=== PATIENT | female | born 1970 | race Caucasian/White ===

== ENCOUNTER 2017-01-13 20:20 | Emergency (ER) | payer BC ==
[2017-01-13 20:30] VITALS: BP 129/96
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
== END 2017-01-13 21:25 | disposition home or self-care (01) ==
LOC: CC.ED 20:20
DX: S62.235A Other nondisplaced fracture of base of first metacarpal bone, left hand, initial encounter for closed fracture (principal); S00.83XA Contusion of other part of head, initial encounter; S80.211A Abrasion, right knee, initial encounter; Z88.5 Allergy status to narcotic agent; Z98.890 Other specified postprocedural states; Z98.84 Bariatric surgery status; Z90.49 Acquired absence of other specified parts of digestive tract; Z79.899 Other long term (current) drug therapy; V29.9XXA Motorcycle rider (driver) (passenger) injured in unspecified traffic accident, initial encounter
CPT/HCPCS: 29125; 73130-LT; 99283

== ENCOUNTER 2017-06-18 09:20 | Inpatient (IN) | payer BC ==
--- NOTE | 2017-06-18 09:55 | EDM.PDOC ---
ED HPI GENERAL MEDICAL PROBLEM - General Chief Complaint: General Stated Complaint: N/V/CHEST PRESSURE Time Seen by Provider: 06/18/17 09:45 Source of Information: Reports: Patient History Limitations: Reports: No Limitations - History of Present Illness INITIAL COMMENTS - FREE TEXT/NARRATIVE: Patient is a 47 year old female who presents to the ER with complaints of nausea , vomiting, and chest pressure. She reports that the symptoms started two days ago. On she reports she was nauseated and was unable to eat. She reportedly vomited 4 times yesterday and was vomiting all through the night last night. She has been unable to eat or drink without vomiting. She reports she would have episodes of coughing and shortness of breath where she would cough so hard that she would vomit. She states that she feels the shortness of breath when she is coughing. These episodes have been occurring more frequently , prompting her presentation to the ER. She reports that she has a sensation of chest pressure in the epigastric region. She tried taking NyQuil last night, without relief. She also has taken Zofran and omeprazole without relief. Onset Date: 06/16/17 Duration: Getting Worse Location: Reports: Chest (pressure), Abdomen (nausea & vomiting) Improves with: Reports: None Worsens with: Reports: None Associated Symptoms: Reports: Cough, Fever/Chills (chills), Loss of Appetite, Nausea/Vomiting, Shortness of Breath Treatments RESEARCH SUBJECT: Reports: Other Medication(s) (zofran & NyQuil) - Related Data Allergies Allergy/AdvReac Type Severity Reaction Status Date / Time codeine Allergy Nausea Verified 01/13/17 20:19 Home Meds: Home Meds Biotin 10,000 mcg PO DAILY 01/13/17 [History] Calcium Carbonate/Vitamin D3 [Calcium 500 + Vit D Caplet] 1 tab PO DAILY [History] Cholecalciferol (Vitamin D3) [Vitamin D3] 5,000 unit PO DAILY 01/13/17 [History] Iron 18 mg PO DAILY 01/13/17 [History] Multivitamin [Multivitamins] 2 tab PO DAILY 01/13/17 [History] buPROPion HCl [Bupropion Xl] 300 mg PO DAILY 01/13/17 [History] Vitamin B Complex [B Complex] 1 each PO DAILY 10/14/17 [History] Past Medical History - Past Surgical History HEENT Surgical History: Reports: Adenoidectomy, Tonsillectomy GI Surgical History: Reports: Bariatric Procedure, Cholecystectomy, Other (See Below) Social & Family History - Family History Family Medical History: Noncontributory - Tobacco Use Smoking Status *Q: Never Smoker Second Hand Smoke Exposure: No - Caffeine Use Caffeine Use: Reports: Coffee - Recreational Drug Use Recreational Drug Use: No ED ROS GENERAL - Review of Systems Review Of Systems: See Below Constitutional: Reports: Chills, Fatigue, Decreased Appetite. Denies: Fever, Malaise, Diaphoresis HEENT: Reports: No Symptoms Respiratory: Reports: Shortness of Breath (with coughing), Wheezing, Cough Cardiovascular: Reports: Chest Pain (pressure in epigastric region). Denies: Dyspnea on Exertion, Edema, Lightheadedness, Palpitations Endocrine: Reports: No Symptoms GI/Abdominal: Reports: Anorexia, Diarrhea (baseline), Decreased Appetite, Nausea , Vomiting. Denies: Abdominal Pain, Black Stool, Bloody Stool, Difficulty Swallowing, Distension, Hematemesis, Hematochezia, Melena : Reports: No Symptoms. Denies: Dysuria, Flank Pain, Frequency, Urgency Musculoskeletal: Reports: No Symptoms Skin: Reports: No Symptoms Neurological: Reports: No Symptoms Psychiatric: Reports: No Symptoms Hematologic/Lymphatic: Reports: No Symptoms Immunologic: Reports: No Symptoms ED EXAM, GENERAL - Physical Exam Exam: See Below Exam Limited By: No Limitations General Appearance: Alert, WD/WN, Mild Distress Eye Exam: Bilateral Eye: EOMI, Normal Inspection, PERRL Ears: Normal External Exam, Normal Canal, Hearing Grossly Normal, Normal TMs Ear Exam: Bilateral Ear: Auricle Normal, Canal Normal, TM normal Nose: Normal Inspection, Normal Mucosa, No Blood Throat/Mouth: Normal Inspection, Normal Lips, Normal Teeth, Normal Gums, Normal Oropharynx, Normal Voice, No Airway Compromise Head: Atraumatic, Normocephalic Neck: Normal Inspection, Supple, Non-Tender, Full Range of Motion Respiratory/Chest: No Respiratory Distress, Lungs Clear, Normal Breath Sounds, No Accessory Muscle Use, Chest Non-Tender Cardiovascular: Normal Peripheral Pulses, Regular Rate, Rhythm, No Edema, No Gallop, No JVD, No Murmur, No Rub Peripheral Pulses: 2+: Dorsalis Pedis (L), Dorsalis Pedis (R) GI/Abdominal: Normal Bowel Sounds, Soft, Non-Tender, No Organomegaly, No Distention, No Mass, Pelvis Stable (Female) Exam: Deferred Rectal (Female) Exam: Deferred Back Exam: Normal Inspection, Full Range of Motion, NT Extremities: Normal Inspection, Normal Range of Motion, Non-Tender, Normal Capillary Refill, No Pedal Edema Neurological: Alert, Oriented, CN II-XII Intact, Normal Cognition, Normal Gait, Normal Reflexes, No Motor/Sensory Deficits Psychiatric: Normal Affect, Normal Mood Skin Exam: Warm, Dry, Intact, Normal Color, No Rash Lymphatic: No Adenopathy Course - Vital Signs Last Recorded V/S: Last Vital Signs Temp 98.8 F 06/18/17 14:51 Pulse 83 06/18/17 14:51 Resp 18 06/18/17 14:51 BP 115/55 L 06/18/17 14:51 Pulse Ox 99 06/18/17 14:51 - Orders/Labs/Meds Orders: Active Orders 24 hr Category Date Time Status Abdomen Pelvis w Cont [CT] Stat Exams 06/18/17 11:21 Taken Chest 2V [CR] Stat Exams 06/18/17 09:29 Taken Sodium Chloride 0.9% [Normal Saline] 1,000 ml Med 06/18/17 13:30 Active IV ASDIRECTED Medication Orders Albuterol/Ipratropium (Duoneb 3.0-0.5 Mg/3 Ml) 3 ml NEB STAT ONE Stop: 06/18/17 15:13 Sodium Chloride (Normal Saline) 1,000 mls @ 125 mls/hr IV ASDIRECTED [place] Last Admin: 06/18/17 13:35 Dose: 125 mls/hr Labs: Laboratory Tests 06/18/17 06/18/17 06/18/17 Range/Units 09:40 09:40 09:40 WBC 17.5 H (5.0-10.0) 10^3/uL RBC 4.77 (4.00-5.50) 10^6/uL Hgb 13.3 (12.0-16.0) g/dL Hct 40.9 (37.0-47.0) % MCV 85.7 (82.0-94.0) fL MCH 27.9 (27.0-32.0) pg MCHC 32.5 L (33.0-38.0) g/dL RDW Coeff of [place] 14.3 (11.0-15.0) % Plt Count 286 (150-400) 10^3/uL Add Manual Diff Yes Neutrophils % (Manual) 70 (35-85) % Band Neutrophils % 21 H (0-5) % Lymphocytes % (Manual) 4 L (21-55) % Monocytes % (Manual) 5 (2-12) % Absolute Neutrophils 15.93 H (1.80-7.00) 10^3/uL Lymphocytes # (Manual) 0.70 L (1.00-4.80) 10^3/uL Monocytes # (Manual) 0.88 H (0.00-0.80) 10^3/uL PT 10.9 (9.7-12.3) SEC INR 1.01 (0.92-1.18) APTT 26.9 (20.0-45.0) SEC D-Dimer, Quantitative (0.00-0.50) Sodium 139 (136-145) mEq/L Potassium 3.9 (3.5-5.0) mEq/L Chloride 104 (98-106) mEq/L Carbon Dioxide 26 (21-32) mmol/L BUN 11 D (7-18) mg/dL Creatinine 0.7 (0.6-1.0) mg/dL Est Cr Clr Drug Dosing 101.60 mL/min Estimated GFR (MDRD) > 60 (>=60) mL/min Glucose 104 H (75-99) mg/dL Calcium 9.1 (8.4-10.1) mg/dL Lactate Dehydrogenase 140 (100-190) U/L Creatine Kinase 42 (21-215) U/L Troponin I < 0.017 (0.00-0.06) ng/mL NT-Pro-B Natriuret Pep 39 (0-1000) pg/mL Urine Color (YELLOW) Urine Appearance (CLEAR) Urine pH (4.5-8.0) Ur Specific [place] (1.003-1.020) Urine Protein (NEGATIVE) mg/dL Urine Glucose (UA) (NEGATIVE) mg/dL Urine Ketones (NEGATIVE) mg/dL Urine Occult Blood (NEGATIVE) Urine Nitrite (NEGATIVE) Urine Bilirubin (NEGATIVE) Urine Urobilinogen (0.2-1.0) EU/dL Ur Leukocyte Esterase (NEGATIVE) Urine RBC (0-5) /HPF Urine WBC (0-5) /HPF Ur Epithelial Cells (NOT SEEN) /HPF Amorphous Sediment (NOT SEEN) /HPF Urine Mucus (NOT SEEN) /HPF 06/18/17 06/18/17 Range/Units 09:40 10:15 WBC (5.0-10.0) 10^3/uL RBC (4.00-5.50) 10^6/uL Hgb (12.0-16.0) g/dL Hct (37.0-47.0) % MCV (82.0-94.0) fL MCH (27.0-32.0) pg MCHC (33.0-38.0) g/dL RDW Coeff of Tracy (11.0-15.0) % Plt Count (150-400) 10^3/uL Add Manual Diff Neutrophils % (Manual) (35-85) % Band Neutrophils % (0-5) % Lymphocytes % (Manual) (21-55) % Monocytes % (Manual) (2-12) % Absolute Neutrophils (1.80-7.00) 10^3/uL Lymphocytes # (Manual) (1.00-4.80) 10^3/uL Monocytes # (Manual) (0.00-0.80) 10^3/uL PT (9.7-12.3) SEC INR (0.92-1.18) APTT (20.0-45.0) SEC D-Dimer, Quantitative 0.20 (0.00-0.50) Sodium (136-145) mEq/L Potassium (3.5-5.0) mEq/L Chloride (98-106) mEq/L Carbon Dioxide (21-32) mmol/L BUN (7-18) mg/dL Creatinine (0.6-1.0) mg/dL Est Cr Clr Drug Dosing mL/min Estimated GFR (MDRD) (>=60) mL/min Glucose (75-99) mg/dL Calcium (8.4-10.1) mg/dL Lactate Dehydrogenase (100-190) U/L Creatine Kinase (21-215) U/L Troponin I (0.00-0.06) ng/mL NT-Pro-B Natriuret Pep (0-1000) pg/mL Urine Color Dark yellow (YELLOW) Urine Appearance Clear (CLEAR) Urine pH 7.0 (4.5-8.0) Ur Specific [place] 1.025 H (1.003-1.020) Urine Protein 30 H (NEGATIVE) mg/dL Urine Glucose (UA) Negative (NEGATIVE) mg/dL Urine Ketones 80 H (NEGATIVE) mg/dL Urine Occult Blood Negative (NEGATIVE) Urine Nitrite Negative (NEGATIVE) Urine Bilirubin Negative (NEGATIVE) Urine Urobilinogen 1.0 (0.2-1.0) EU/dL Ur Leukocyte Esterase Negative (NEGATIVE) Urine RBC Not seen (0-5) /HPF Urine WBC 0-5 (0-5) /HPF Ur Epithelial Cells Moderate H (NOT SEEN) /HPF Amorphous Sediment Few H (NOT SEEN) /HPF Urine Mucus Moderate H (NOT SEEN) /HPF Meds: Medications Generic Name Dose Route Start Last Admin Trade Name Freq PRN Reason Stop Dose Admin Albuterol/Ipratropium 3 ml 06/18/17 15:12 Duoneb 3.0-0.5 Mg/3 Ml NEB 06/18/17 15:13 STAT ONE Sodium Chloride 1,000 mls @ 125 mls/hr 06/18/17 13:30 06/18/17 13:35 Normal Saline IV 125 mls/hr ASDIRECTED [place] Administration Discontinued Medications Generic Name Dose Route Start Last Admin Trade Name Freq PRN Reason Stop Dose Admin Al Hydroxide/Mg Hydroxide 30 0 ml 06/18/17 14:18 06/18/17 14:56 ml/ Lidocaine HCl 15 ml PO 06/18/17 14:19 45 ml ONETIME ONE Administration Sodium Chloride 1,000 mls @ 999 mls/hr 06/18/17 10:00 06/18/17 10:32 Normal Saline IV 06/18/17 11:00 999 mls/hr .BOLUS ONE Administration Promethazine HCl 25 mg/ Sodium 51 mls @ 100 mls/hr 06/18/17 13:20 06/18/17 13 :37 Chloride IV 06/18/17 13:50 100 mls/hr NOW STA Administration Iopamidol 100 ml 06/18/17 11:32 06/18/17 11:58 Isovue-300 (61%) IVPUSH 06/18/17 11:33 100 ml ONETIME ONE Administration Ondansetron HCl 4 mg 06/18/17 10:00 06/18/17 10:36 Zofran IVPUSH 06/18/17 10:01 4 mg NOW STA Administration Pantoprazole Sodium 40 mg 06/18/17 13:20 06/18/17 13:35 Protonix Iv IVPUSH 06/18/17 13:21 40 mg ONETIME ONE Administration - Re-Assessments/Exams Free Text/Narrative Re-Assessment/Exam: 06/18/17 11:27 Discussed lab results with patient. Will get a CT of abdomen/pelvis given WBC of 17.5. Departure - Departure Time of Disposition: 14:40 Disposition: Admitted As Inpatient 64 Condition: Fair Clinical Impression: Pneumonia Qualifiers: Pneumonia type: due to unspecified organism Laterality: right Lung location: lower lobe of lung Qualified Code(s): J18.1 - Lobar pneumonia, unspecified organism Leukocytosis Qualifiers: Leukocytosis type: bandemia Qualified Code(s): D72.825 - Bandemia Nausea & vomiting Qualifiers: Vomiting type: unspecified Vomiting Intractability: non-intractable Qualified Code(s): R11.2 - Nausea with vomiting, unspecified - Discharge Information - My Orders Last 24 Hours: My Active Orders 06/18/17 11:21 Abdomen Pelvis w Cont [CT] Stat - Assessment/Plan Last 24 Hours: My Active Orders 06/18/17 11:21 Abdomen Pelvis w Cont [CT] Stat Assessment:: Right Lower Lobe Pneumonia Leukocytosis Nausea & Vomiting Plan: SEE RN NOTE FOR PFSH. See use ER [facility] as admission [facility] & [facility]. Admit to Acute.
[2017-06-18] MEDS ORDERED: Ondansetron 4 MG/2 ML SDV IVPUSH STA (10:00)
[2017-06-18] MEDS ORDERED: Sodium Chloride 0.9% 1,000 ML IV ONE (10:00)
[2017-06-18 10:11] LABS: CHLORIDE,CL 104 mEq/L (98-106); SODIUM,NA 139 mEq/L (136-145)
[2017-06-18] MEDS ORDERED: Iopamidol 612 MG/ML 100 ML Bottle IVPUSH ONE (11:32)
[2017-06-18] MEDS ORDERED: Promethazine 25 MG in Sodium Chloride 0.9% 50 ML IV STA (13:20)
[2017-06-18] MEDS ORDERED: Pantoprazole 40 MG Vial IVPUSH ONE (13:20)
[2017-06-18] MEDS: Sodium Chloride 0.9% 1,000 ML IV SCH (13:35)
[2017-06-18] MEDS ORDERED: Alum Hydrox/Mag Hydrox/Simeth 30 ML, Lidocaine 2% 15 ML PO ONE ×2 (14:18)
[2017-06-18] MEDS ORDERED: Albuterol/Ipratropium 3.0-0.5 MG/3 ML Neb Soln NEB ONE (15:12)
[2017-06-18] MEDS ORDERED: Albuterol/Ipratropium 3.0-0.5 MG/3 ML Neb Soln NEB PRN (15:38)
[2017-06-18] MEDS ORDERED: HYDROmorphone 1 MG/ML Syringe IVPUSH PRN (15:42)
[2017-06-18] MEDS ORDERED: Ibuprofen 200 MG Tab PO PRN (15:42)
[2017-06-18] MEDS ORDERED: Polyethylene Glycol 3350 Powder 17 GM Packet PO PRN (15:42)
[2017-06-18] MEDS ORDERED: Ondansetron 4 MG/2 ML SDV IV PRN (15:42)
[2017-06-18] MEDS: buPROPion 150 MG Tab.ER PO SCH (16:13)
[2017-06-18] MEDS: Levofloxacin/Dextrose 5%-Water 750 MG in Premix Bag 1 BAG IV SCH (16:14)
[2017-06-18] MEDS: Ferrous Sulfate 324 MG Tab.EC PO SCH (16:33)
[2017-06-18] MEDS: Acetaminophen 325 MG Tab PO PRN (17:55)
[2017-06-18] MEDS: Albuterol/Ipratropium 3.0-0.5 MG/3 ML Neb Soln NEB SCH (20:36)
[2017-06-19] MEDS: Sodium Chloride 0.9% 1,000 ML IV SCH ×3 (01:57→20:06)
--- NOTE | 2017-06-19 05:35 | PCM.PN ---
- General Info Date of Service: 06/19/17 Admission Dx/Problem (Free Text): Right Lower Lobe Pneumonia Leukocytosis Bandemia- resolved Nausea/Vomiting- resolved Subjective Update: Patient reports she is feeling much better this morning. She has been able to keep foods down and is no longer nauseated. Did have fever last evening of 101.2. Has been afebrile throughout the night. Coughing occasionally. Reports some chest tightness when she's lying on her side. WBC normalized at 8.2. CRP 4.2. Functional Status: Reports: Pain Controlled, Ambulating, Urinating. Denies: Tolerating Diet - Review of Systems General: Reports: Fever, Weakness, Fatigue, Malaise. Denies: Appetite HEENT: Reports: No Symptoms Pulmonary: Reports: Shortness of Breath (at times), Cough, Other (chest tightness when lying on side). Denies: Pleuritic Chest Pain, Hemoptysis, Wheezing Cardiovascular: Reports: Dyspnea on Exertion. Denies: Chest Pain, Palpitations , Edema, Lightheadedness Gastrointestinal: Reports: Decreased Appetite, Nausea. Denies: Abdominal Pain, Diarrhea, Hematochezia, Melena, Vomiting Genitourinary: Reports: No Symptoms. Denies: Dysuria, Frequency, Urgency Musculoskeletal: Reports: Other (generalized weakness) Skin: Reports: No Symptoms Neurological: Reports: No Symptoms. Denies: Dizziness, Headache Psychiatric: Reports: No Symptoms - Patient Data Vitals - Most Recent: Last Vital Signs Temp 98.6 F 06/19/17 04:00 Pulse 84 06/19/17 04:00 Resp 20 06/19/17 04:00 BP 103/59 L 06/19/17 04:00 Pulse Ox 96 06/19/17 04:00 Weight - Most Recent: 177 lb 3.2 oz I&O - Last 24 Hours: Intake & Output 06/18/17 06/18/17 06/19/17 14:59 22:59 06:59 Intake Total 1200 Balance 1200 Med Orders - Current: Current Medications Acetaminophen (Tylenol) 650 mg PO Q4H PRN PRN Reason: Pain (Mild 1-3)/fever Last Admin: 06/18/17 17:55 Dose: 650 mg Albuterol/Ipratropium (Duoneb 3.0-0.5 Mg/3 Ml) 3 ml NEB Q4H PRN PRN Reason: Dyspnea Albuterol/Ipratropium (Duoneb 3.0-0.5 Mg/3 Ml) 3 ml NEB 0800,1200,1600,2000 [facility] Last Admin: 06/18/17 20:36 Dose: 3 ml Bupropion HCl (Wellbutrin Xl) 300 mg PO DAILY [facility] Last Admin: 06/18/17 16:13 Dose: 300 mg Ferrous Sulfate (Ferrous Sulfate) 324 mg PO DAILY [facility] Last Admin: 06/18/17 16:33 Dose: Not Given Hydromorphone HCl (Dilaudid) 0.5 mg IVPUSH Q2H PRN PRN Reason: Pain (severe 7-10) Sodium Chloride (Normal Saline) 1,000 mls @ 125 mls/hr IV ASDIRECTED [facility] Last Admin: 06/19/17 01:57 Dose: 125 mls/hr Levofloxacin/Dextrose 750 mg/ (Premix) 150 mls @ 100 mls/hr IV Q24H [facility] Last Admin: 06/18/17 16:14 Dose: 100 mls/hr Ibuprofen (Motrin) 600 mg PO Q6H PRN PRN Reason: Pain (mild 1-3) Last Admin: 06/18/17 20:38 Dose: 600 mg Ondansetron HCl (Zofran) 4 mg IV Q6H PRN PRN Reason: Nausea/Vomiting Last Admin: 06/18/17 20:35 Dose: 4 mg Polyethylene Glycol (Miralax) 17 gm PO DAILY PRN PRN Reason: Constipation Temazepam (Restoril) 15 mg PO BEDTIME PRN PRN Reason: Sleep Discontinued Medications Albuterol/Ipratropium (Duoneb 3.0-0.5 Mg/3 Ml) 3 ml NEB STAT ONE Stop: 06/18/17 15:13 Last Admin: 06/18/17 15:25 Dose: 3 ml Al Hydroxide/Mg Hydroxide 30 (ml/ Lidocaine HCl 15 ml) 0 ml PO ONETIME ONE Stop: 06/18/17 14:19 Last Admin: 06/18/17 14:56 Dose: 45 ml Sodium Chloride (Normal Saline) 1,000 mls @ 999 mls/hr IV .BOLUS ONE Stop: 06/18/17 11:00 Last Admin: 06/18/17 10:32 Dose: 999 mls/hr Promethazine HCl 25 mg/ Sodium (Chloride) 51 mls @ 100 mls/hr IV NOW STA Stop: 06/18/17 13:50 Last Admin: 06/18/17 13:37 Dose: 100 mls/hr Iopamidol (Isovue-300 (61%)) 100 ml IVPUSH ONETIME ONE Stop: 06/18/17 11:33 Last Admin: 06/18/17 11:58 Dose: 100 ml Ondansetron HCl (Zofran) 4 mg IVPUSH NOW STA Stop: 06/18/17 10:01 Last Admin: 06/18/17 10:36 Dose: 4 mg Pantoprazole Sodium (Protonix Iv) 40 mg IVPUSH ONETIME ONE Stop: 06/18/17 13:21 Last Admin: 06/18/17 13:35 Dose: 40 mg - Exam Quality Assessment: DVT Prophylaxis. No: Supplemental Oxygen General: Alert, Oriented, Mild Distress HEENT: Pupils Equal, Pupils Reactive, EOMI, Mucous Membr. Moist/[place] Neck: Supple, Trachea Midline Lungs: Clear to Auscultation, Normal Respiratory Effort, Other (cough) Cardiovascular: Regular Rate, Regular Rhythm, No Murmurs GI/Abdominal Exam: Normal Bowel Sounds, Soft, Non-Tender, No Organomegaly, No Distention, No Abnormal Bruit, No Mass, Pelvis Stable (Female) Exam: Deferred Back Exam: Normal Inspection, Full Range of Motion Extremities: Normal Inspection, Normal Range of Motion, Non-Tender, No Pedal Edema, Normal Capillary Refill Skin: Warm, Dry, Intact Neurological: No New Focal Deficit Psy/Mental Status: Alert, Normal Affect, Normal Mood - Problem List & Annotations (1) Generalized weakness SNOMED Code(s): 80064044 Code(s): R53.1 - WEAKNESS Status: Acute Priority: Medium Current Visit : Yes Annotation/Comment:: improving (2) Leukocytosis SNOMED Code(s): 648793782 Code(s): D72.829 - ELEVATED WHITE BLOOD CELL COUNT, UNSPECIFIED Status: Acute Priority: High Current Visit: Yes Qualifiers: Qualified Code(s): D72.825 - Bandemia Annotation/Comment:: resolved (3) Nausea & vomiting SNOMED Code(s): 94346515 Code(s): R11.2 - NAUSEA WITH VOMITING, UNSPECIFIED Status: Acute Priority : Medium Current Visit: Yes Qualifiers: Vomiting type: unspecified Vomiting Intractability: non-intractable Qualified Code(s): R11.2 - Nausea with vomiting, unspecified (4) Pneumonia SNOMED Code(s): 023526343 Code(s): J18.9 - PNEUMONIA, UNSPECIFIED ORGANISM Status: Acute Priority: High Current Visit: Yes Qualifiers: Pneumonia type: due to unspecified organism Laterality: right Lung location: lower lobe of lung Qualified Code(s): J18.1 - Lobar pneumonia, unspecified organism - Problem List Review Problem List Initiated/Reviewed/Updated: Yes - My Orders Last 24 Hours: My Active Orders 06/18/17 15:23 Resuscitation Status Routine 06/18/17 15:38 RT Aerosol Therapy [RC] ASDIRECTED Albuterol/Ipratropium [DuoNeb 3.0-0.5 MG/3 ML] 3 ml NEB Q4H PRN 06/18/17 15:42 Patient Status [ADT] Routine Oxygen Therapy [RC] .PRN Up ad Alexandra [RC] .PRN Vital Signs [RC] 0000,0400,0800,1200,1600,2000 Acetaminophen [Tylenol] 650 mg PO Q4H PRN HYDROmorphone [Dilaudid] 0.5 mg IVPUSH Q2H PRN Ibuprofen [Motrin] 600 mg PO Q6H PRN Ondansetron [Zofran] 4 mg IV Q6H PRN Polyethylene Glycol 3350 [MiraLAX] 17 gm PO DAILY PRN Temazepam [Restoril] 15 mg PO BEDTIME PRN 06/18/17 15:45 Ferrous Sulfate 324 mg PO DAILY buPROPion [Wellbutrin XL] 300 mg PO DAILY 06/18/17 15:55 Antiembolic Devices [RC] 1000,2200 MALIKA Hose [Antiembolic Hose] [OM.PC] Routine 06/18/17 16:00 Levofloxacin/Dextrose 5%-Water [Levaquin in D5W 750 MG/150 ML] 750 mg Premix Bag 1 bag IV Q24H 06/18/17 16:05 Blood Culture x2 Reflex Set [OM.PC] Stat 06/18/17 16:10 CULTURE BLOOD [BC] Stat 06/18/17 16:15 CULTURE BLOOD [BC] Stat 06/18/17 Dinner Regular Diet [DIET] 06/19/17 05:00 BASIC METABOLIC PANEL,BMP [CHEM] DAILY C-REACTIVE PROTEIN [CHEM] DAILY CBC WITH AUTO DIFF [HEME] DAILY 06/20/17 05:00 BASIC METABOLIC PANEL,BMP [CHEM] DAILY C-REACTIVE PROTEIN [CHEM] DAILY CBC WITH AUTO DIFF [HEME] DAILY 06/21/17 05:00 BASIC METABOLIC PANEL,BMP [CHEM] DAILY C-REACTIVE PROTEIN [CHEM] DAILY CBC WITH AUTO DIFF [HEME] DAILY 06/22/17 05:00 BASIC METABOLIC PANEL,BMP [CHEM] DAILY C-REACTIVE PROTEIN [CHEM] DAILY CBC WITH AUTO DIFF [HEME] DAILY - Assessment Assessment:: Right lower lobe pneumonia Leukocytosis- improved WBC 8.6 today Bandemia- resolved Generalized weakness- improving Nausea/Vomiting- improving - Plan Plan:: Continue current cares- duo nebs, IV levaquin. Decrease IVF to 75 mL/hr. Potential discharge tomorrow if patient continues to improve.
[2017-06-19] MEDS: Albuterol/Ipratropium 3.0-0.5 MG/3 ML Neb Soln NEB SCH ×6 (06:46→20:15)
[2017-06-19 07:26] LABS: CHLORIDE,CL 109 mEq/L (98-106); SODIUM,NA 141 mEq/L (136-145)
[2017-06-19] MEDS: buPROPion 150 MG Tab.ER PO SCH (08:21)
[2017-06-19] MEDS: Ferrous Sulfate 324 MG Tab.EC PO SCH (08:23)
[2017-06-19] MEDS: Levofloxacin/Dextrose 5%-Water 750 MG in Premix Bag 1 BAG IV SCH (16:02)
[2017-06-19] MEDS: Acetaminophen 325 MG Tab PO PRN (20:05)
[2017-06-19] MEDS: Temazepam 15 MG Cap PO PRN (23:46)
[2017-06-20 07:31] LABS: CHLORIDE,CL 109 mEq/L (98-106); SODIUM,NA 141 mEq/L (136-145)
[2017-06-20] MEDS: buPROPion 150 MG Tab.ER PO SCH (08:26)
[2017-06-20] MEDS: Ferrous Sulfate 324 MG Tab.EC PO SCH (08:26)
[2017-06-20] MEDS: Acetaminophen 325 MG Tab PO PRN ×3 (08:26→22:05)
[2017-06-20] MEDS: Albuterol/Ipratropium 3.0-0.5 MG/3 ML Neb Soln NEB SCH ×4 (08:31→20:37)
[2017-06-20] MEDS ORDERED: Sodium Chloride 0.9% 10 ML Syringe FLUSH PRN (08:57)
--- NOTE | 2017-06-20 15:07 | PCM.PN ---
- General Info Date of Service: 06/20/17 Admission Dx/Problem (Free Text): Right Lower Lobe Pneumonia Leukocytosis Bandemia- resolved Nausea/Vomiting- resolved Functional Status: Reports: Pain Controlled, Tolerating Diet. Denies: Ambulating - Review of Systems General: Reports: Fatigue. Denies: Fever HEENT: Reports: No Symptoms Pulmonary: Reports: Pleuritic Chest Pain, Cough. Denies: Shortness of Breath, Sputum Cardiovascular: Denies: Chest Pain, Edema, Lightheadedness Gastrointestinal: Denies: Abdominal Pain, Nausea, Vomiting Genitourinary: Reports: No Symptoms Musculoskeletal: Reports: No Symptoms Skin: Reports: No Symptoms Neurological: Reports: No Symptoms - Patient Data Vitals - Most Recent: Last Vital Signs Temp 98.4 F 06/20/17 12:00 Pulse 78 06/20/17 12:00 Resp 19 06/20/17 12:00 BP 124/67 06/20/17 12:00 Pulse Ox 100 06/20/17 12:00 Weight - Most Recent: 177 lb 3.2 oz I&O - Last 24 Hours: Intake & Output 06/19/17 06/20/17 06/20/17 22:59 06:59 14:59 Intake Total 1168 Balance 1168 Lab Results Last 24 Hours: Laboratory Results - last 24 hr 06/20/17 06/20/17 Range/Units 06:55 06:55 WBC 5.3 (5.0-10.0) 10^3/uL RBC 3.95 L (4.00-5.50) 10^6/uL Hgb 11.0 L (12.0-16.0) g/dL Hct 34.6 L (37.0-47.0) % MCV 87.6 (82.0-94.0) fL MCH 27.8 (27.0-32.0) pg MCHC 31.8 L (33.0-38.0) g/dL RDW Coeff of [place] 14.3 (11.0-15.0) % Plt Count 239 (150-400) 10^3/uL Neut % (Auto) 59.6 (35-85) % Lymph % (Auto) 26.2 (10-55) % [place] % (Auto) 11.0 (0-16) % Eos % (Auto) 3.0 (0-5) % Baso % (Auto) 0.2 (0-3) % Neut # (Auto) 3.13 (1.80-7.00) 10^3/uL Lymph # (Auto) 1.38 (1.00-4.80) 10^3/uL [place] # (Auto) 0.58 (0.00-0.80) 10^3/uL Eos # (Auto) 0.16 (0.00-0.45) 10^3/uL Baso # (Auto) 0.01 10^3/uL Sodium 141 (136-145) mEq/L Potassium 3.7 (3.5-5.0) mEq/L Chloride 109 H (98-106) mEq/L Carbon Dioxide 26 (21-32) mmol/L BUN 8 (7-18) mg/dL Creatinine 0.6 (0.6-1.0) mg/dL Est Cr Clr Drug Dosing 118.53 mL/min Estimated GFR (MDRD) > 60 (>=60) mL/min Glucose 87 (75-99) mg/dL Calcium 8.0 L (8.4-10.1) mg/dL C-Reactive Protein 1.6 H (0.2-0.8) mg/dL [place] Results Last 24 Hours: Microbiology 06/18/17 16:10 Aerobic Blood Culture - Preliminary Blood - Venous NO GROWTH AFTER 1 DAY Anaerobic Blood Culture - Preliminary NO GROWTH AFTER 1 DAY 06/18/17 16:15 Aerobic Blood Culture - Preliminary Blood - Venous - Lab Draw NO GROWTH AFTER 1 DAY Anaerobic Blood Culture - Preliminary NO GROWTH AFTER 1 DAY Med Orders - Current: Current Medications Acetaminophen (Tylenol) 650 mg PO Q4H PRN PRN Reason: Pain (Mild 1-3)/fever Last Admin: 06/20/17 12:58 Dose: 650 mg Albuterol/Ipratropium (Duoneb 3.0-0.5 Mg/3 Ml) 3 ml NEB Q4H PRN PRN Reason: Dyspnea Last Admin: 06/19/17 18:27 Dose: 3 ml Albuterol/Ipratropium (Duoneb 3.0-0.5 Mg/3 Ml) 3 ml NEB 0800,1200,1600,2000 [facility] Last Admin: 06/20/17 12:56 Dose: 3 ml Bupropion HCl (Wellbutrin Xl) 300 mg PO DAILY [facility] Last Admin: 06/20/17 08:26 Dose: 300 mg Ferrous Sulfate (Ferrous Sulfate) 324 mg PO DAILY [facility] Last Admin: 06/20/17 08:26 Dose: 324 mg Hydromorphone HCl (Dilaudid) 0.5 mg IVPUSH Q2H PRN PRN Reason: Pain (severe 7-10) Levofloxacin/Dextrose 750 mg/ (Premix) 150 mls @ 100 mls/hr IV Q24H [facility] Last Admin: 06/19/17 16:02 Dose: 100 mls/hr Ibuprofen (Motrin) 600 mg PO Q6H PRN PRN Reason: Pain (mild 1-3) Last Admin: 06/18/17 20:38 Dose: 600 mg Ondansetron HCl (Zofran) 4 mg IV Q6H PRN PRN Reason: Nausea/Vomiting Last Admin: 06/18/17 20:35 Dose: 4 mg Polyethylene Glycol (Miralax) 17 gm PO DAILY PRN PRN Reason: Constipation Sodium Chloride (Saline Flush) 10 ml FLUSH ASDIRECTED PRN PRN Reason: Keep Vein Open Temazepam (Restoril) 15 mg PO BEDTIME PRN PRN Reason: Sleep Last Admin: 06/19/17 23:46 Dose: 15 mg Discontinued Medications Albuterol/Ipratropium (Duoneb 3.0-0.5 Mg/3 Ml) 3 ml NEB STAT ONE Stop: 06/18/17 15:13 Last Admin: 06/18/17 15:25 Dose: 3 ml Al Hydroxide/Mg Hydroxide 30 (ml/ Lidocaine HCl 15 ml) 0 ml PO ONETIME ONE Stop: 06/18/17 14:19 Last Admin: 06/18/17 14:56 Dose: 45 ml Sodium Chloride (Normal Saline) 1,000 mls @ 999 mls/hr IV .BOLUS ONE Stop: 06/18/17 11:00 Last Admin: 06/18/17 10:32 Dose: 999 mls/hr Promethazine HCl 25 mg/ Sodium (Chloride) 51 mls @ 100 mls/hr IV NOW STA Stop: 06/18/17 13:50 Last Admin: 06/18/17 13:37 Dose: 100 mls/hr Sodium Chloride (Normal Saline) 1,000 mls @ 125 mls/hr IV ASDIRECTED [facility] Last Admin: 06/19/17 01:57 Dose: 125 mls/hr Sodium Chloride (Normal Saline) 1,000 mls @ 75 mls/hr IV ASDIRECTED [place] Last Admin: 06/19/17 20:06 Dose: 75 mls/hr Iopamidol (Isovue-300 (61%)) 100 ml IVPUSH ONETIME ONE Stop: 06/18/17 11:33 Last Admin: 06/18/17 11:58 Dose: 100 ml Ondansetron HCl (Zofran) 4 mg IVPUSH NOW STA Stop: 06/18/17 10:01 Last Admin: 06/18/17 10:36 Dose: 4 mg Pantoprazole Sodium (Protonix Iv) 40 mg IVPUSH ONETIME ONE Stop: 06/18/17 13:21 Last Admin: 06/18/17 13:35 Dose: 40 mg - Exam Quality Assessment: No: Supplemental Oxygen General: Alert, Oriented HEENT: Mucous Membr. Moist/[place] Neck: Supple Lungs: Clear to Auscultation, Normal Respiratory Effort Cardiovascular: Regular Rate, Regular Rhythm GI/Abdominal Exam: Normal Bowel Sounds, Soft, Non-Tender Extremities: Normal Inspection, No Pedal Edema Skin: Warm, Dry Neurological: No New Focal Deficit - Problem List & Annotations (1) Pneumonia SNOMED Code(s): 340520579 Code(s): J18.9 - PNEUMONIA, UNSPECIFIED ORGANISM Status: Acute Priority: High Current Visit: Yes Qualifiers: Pneumonia type: due to unspecified organism Laterality: right Lung location: lower lobe of lung Qualified Code(s): J18.1 - Lobar pneumonia, unspecified organism - Problem List Review Problem List Initiated/Reviewed/Updated: Yes - My Orders Last 24 Hours: My Active Orders 06/20/17 08:57 Sodium Chloride 0.9% [Saline Flush] 10 ml FLUSH ASDIRECTED PRN Convert IV to Saline Lock [OM.PC] Routine - Assessment Assessment:: Right lower lobe pneumonia Leukocytosis- improved WBC 8.6 today Bandemia- resolved Generalized weakness- improving Nausea/Vomiting- improving - Plan Plan:: Continue current cares- duo nebs, IV levaquin. Decrease IVF to 75 mL/hr. Potential discharge tomorrow if patient continues to improve. 06-20-2017 Patient is doing better today. Continues to feel weak but has much less chest tightness. States still has pleuritic chest pain when lies on her side but feels she has been air exchange now. No fevers. WBC improved now to 5.3, CRP 1.6. Electrolytes stable. Will stop IV fluids. Continue Levaquin and DuoNebs. Encourage ambulation. Check sats with ambulation. Possible discharge in am.
[2017-06-20] MEDS: Levofloxacin/Dextrose 5%-Water 750 MG in Premix Bag 1 BAG IV SCH (16:05)
[2017-06-20] MEDS: Temazepam 15 MG Cap PO PRN (22:05)
[2017-06-21 07:40] LABS: CHLORIDE,CL 106 mEq/L (98-106); SODIUM,NA 138 mEq/L (136-145)
[2017-06-21] MEDS: Ferrous Sulfate 324 MG Tab.EC PO SCH (07:48)
[2017-06-21] MEDS: Albuterol/Ipratropium 3.0-0.5 MG/3 ML Neb Soln NEB SCH (07:48)
[2017-06-21] MEDS: buPROPion 150 MG Tab.ER PO SCH (07:48)
[2017-06-21 08:07] VITALS: BP 110/70
--- NOTE | 2017-06-21 14:09 | PCM.DCSUM1 ---
Discharge Summary - Hospital Course Free Text/Narrative:: Patient presented to the ED with nausea and vomiting and chest pressure. Was sudden onset 2 days ago. Has not been able to eat, vomited 4 times the day prior to admit and further throughout the day of admit. Had coughing spells so hard she also vomited. Patient states had a hard time lying on her side due to discomfort. Was feeling short of breath. Tried to take Nyquil, Zofran and Omeprazole without relief. Labs in ER did show an elevated WBC of 17.5, 21 bands. D-dimer, ProBNP negative. Chest xray negative. CT of the abdomen and pelvis was done with noted RLL pneumonia. Admitted for IV fluids, antibiotics and nebulizer treatments. - Discharge Data Discharge Date: 06/21/17 Discharge Disposition: Home, Self-Care 01 Condition: Good - Discharge Diagnosis/Problem(s) (1) Pneumonia SNOMED Code(s): 793100477 ICD Code: J18.9 - PNEUMONIA, UNSPECIFIED ORGANISM Status: Acute Priority : High Qualifiers: Pneumonia type: due to unspecified organism Laterality: right Lung location: lower lobe of lung Qualified Code(s): J18.1 - Lobar pneumonia, unspecified organism - Patient Summary/Data Complications: none Hospital Course: Patient has done well during admission. Pleuritic chest pain has improved. Minimal cough noted. WBC down to 6.1 today with CRP of 0.6. Patient is up and ambulating in the halls, sats are stable. Feels less weak today than other days. Lung sounds clear. Afebrile. - Patient Instructions Diet: Usual Diet as Tolerated Activity: As Tolerated - Discharge Plan Prescriptions/Med Rec: Levofloxacin [Levaquin] 500 mg PO Q24H #7 tablet Home Medications: Home Meds Biotin 10,000 mcg PO DAILY 01/13/17 [History] Calcium Carbonate/Vitamin D3 [Calcium 500 + Vit D Caplet] 1 tab PO DAILY [History] Cholecalciferol (Vitamin D3) [Vitamin D3] 5,000 unit PO DAILY 01/13/17 [History] Iron 18 mg PO DAILY 01/13/17 [History] Multivitamin [Multivitamins] 2 tab PO DAILY 01/13/17 [History] buPROPion HCl [Bupropion Xl] 300 mg PO DAILY 01/13/17 [History] Vitamin B Complex [B Complex] 1 each PO DAILY 06/18/17 [History] Levofloxacin [Levaquin] 500 mg PO Q24H #7 tablet 06/21/17 [Rx] Forms: ED Department Discharge Referrals: Emi Soto PA [ED Midlevel Provider] - (Follow up in [place] in one week with Michelle) PCP,None [Family Provider] - - Discharge Summary/Plan Comment DC Time >30 min.: No Discharge Summary/Plan Comment: Discharge home on Levaquin 500 mg for the next 7 days Follow up with Michelle in 7 days for recheck Rest, return to work on Tuesday. - General Info Date of Service: 06/21/17 Admission Dx/Problem (Free Text: Right Lower Lobe Pneumonia Leukocytosis Bandemia- resolved Nausea/Vomiting- resolved Functional Status: Reports: Pain Controlled, Tolerating Diet, Ambulating - Review of Systems General: Reports: Weakness, Fatigue. Denies: Fever, Malaise HEENT: Reports: No Symptoms Pulmonary: Reports: Cough. Denies: Shortness of Breath, Pleuritic Chest Pain Cardiovascular: Denies: Chest Pain, Edema, Lightheadedness Gastrointestinal: Denies: Abdominal Pain, Nausea, Vomiting Genitourinary: Reports: No Symptoms Musculoskeletal: Reports: No Symptoms Skin: Reports: No Symptoms Neurological: Reports: No Symptoms - Patient Data Vitals - Most Recent: Last Vital Signs Temp 98.6 F 06/21/17 08:00 Pulse 85 06/21/17 08:00 Resp 16 06/21/17 08:00 BP 110/70 06/21/17 08:00 Pulse Ox 97 06/21/17 08:00 Weight - Most Recent: 177 lb 3.2 oz I&O - Last 24 hours: Intake & Output 06/20/17 06/21/17 06/21/17 22:59 06:59 14:59 Intake Total 200 Balance 200 Lab Results - Last 24 hrs: Laboratory Results - last 24 hr 06/21/17 06/21/17 Range/Units 07:00 07:00 WBC 6.1 (5.0-10.0) 10^3/uL RBC 4.12 (4.00-5.50) 10^6/uL Hgb 11.6 L (12.0-16.0) g/dL Hct 35.4 L (37.0-47.0) % MCV 85.9 (82.0-94.0) fL MCH 28.2 (27.0-32.0) pg MCHC 32.8 L (33.0-38.0) g/dL RDW Coeff of [place] 14.1 (11.0-15.0) % Plt Count 268 (150-400) 10^3/uL Neut % (Auto) 64.3 (35-85) % Lymph % (Auto) 23.9 (10-55) % [place] % (Auto) 8.4 (0-16) % Eos % (Auto) 3.1 (0-5) % Baso % (Auto) 0.3 (0-3) % Neut # (Auto) 3.89 (1.80-7.00) 10^3/uL Lymph # (Auto) 1.45 (1.00-4.80) 10^3/uL [place] # (Auto) 0.51 (0.00-0.80) 10^3/uL Eos # (Auto) 0.19 (0.00-0.45) 10^3/uL Baso # (Auto) 0.02 10^3/uL Sodium 138 (136-145) mEq/L Potassium 3.7 (3.5-5.0) mEq/L Chloride 106 (98-106) mEq/L Carbon Dioxide 25 (21-32) mmol/L BUN 7 (7-18) mg/dL Creatinine 0.6 (0.6-1.0) mg/dL Est Cr Clr Drug Dosing 118.53 mL/min Estimated GFR (MDRD) > 60 (>=60) mL/min Glucose 88 (75-99) mg/dL Calcium 8.3 L (8.4-10.1) mg/dL C-Reactive Protein 0.6 (0.2-0.8) mg/dL [place] Results - Last 24 hrs: Microbiology 06/18/17 16:10 Aerobic Blood Culture - Preliminary Blood - Venous NO GROWTH AFTER 2 DAYS Anaerobic Blood Culture - Preliminary NO GROWTH AFTER 2 DAYS 06/18/17 16:15 Aerobic Blood Culture - Preliminary Blood - Venous - Lab Draw NO GROWTH AFTER 2 DAYS Anaerobic Blood Culture - Preliminary NO GROWTH AFTER 2 DAYS Med Orders - Current: Current Medications Discontinued Medications Acetaminophen (Tylenol) 650 mg PO Q4H PRN PRN Reason: Pain (Mild 1-3)/fever Last Admin: 06/20/17 22:05 Dose: 650 mg Albuterol/Ipratropium (Duoneb 3.0-0.5 Mg/3 Ml) 3 ml NEB STAT ONE Stop: 06/18/17 15:13 Last Admin: 06/18/17 15:25 Dose: 3 ml Albuterol/Ipratropium (Duoneb 3.0-0.5 Mg/3 Ml) 3 ml NEB Q4H PRN PRN Reason: Dyspnea Last Admin: 06/19/17 18:27 Dose: 3 ml Albuterol/Ipratropium (Duoneb 3.0-0.5 Mg/3 Ml) 3 ml NEB 0800,1200,1600,2000 [facility] Last Admin: 06/21/17 07:48 Dose: 3 ml Bupropion HCl (Wellbutrin Xl) 300 mg PO DAILY [facility] Last Admin: 06/21/17 07:48 Dose: 300 mg Al Hydroxide/Mg Hydroxide 30 (ml/ Lidocaine HCl 15 ml) 0 ml PO ONETIME ONE Stop: 06/18/17 14:19 Last Admin: 06/18/17 14:56 Dose: 45 ml Ferrous Sulfate (Ferrous Sulfate) 324 mg PO DAILY [facility] Last Admin: 06/21/17 07:48 Dose: 324 mg Hydromorphone HCl (Dilaudid) 0.5 mg IVPUSH Q2H PRN PRN Reason: Pain (severe 7-10) Sodium Chloride (Normal Saline) 1,000 mls @ 999 mls/hr IV .BOLUS ONE Stop: 06/18/17 11:00 Last Admin: 06/18/17 10:32 Dose: 999 mls/hr Promethazine HCl 25 mg/ Sodium (Chloride) 51 mls @ 100 mls/hr IV NOW STA Stop: 06/18/17 13:50 Last Admin: 06/18/17 13:37 Dose: 100 mls/hr Sodium Chloride (Normal Saline) 1,000 mls @ 125 mls/hr IV ASDIRECTED [facility] Last Admin: 06/19/17 01:57 Dose: 125 mls/hr Levofloxacin/Dextrose 750 mg/ (Premix) 150 mls @ 100 mls/hr IV Q24H [facility] Last Admin: 06/20/17 16:05 Dose: 100 mls/hr Sodium Chloride (Normal Saline) 1,000 mls @ 75 mls/hr IV ASDIRECTED [facility] Last Admin: 06/19/17 20:06 Dose: 75 mls/hr Ibuprofen (Motrin) 600 mg PO Q6H PRN PRN Reason: Pain (mild 1-3) Last Admin: 06/18/17 20:38 Dose: 600 mg Iopamidol (Isovue-300 (61%)) 100 ml IVPUSH ONETIME ONE Stop: 06/18/17 11:33 Last Admin: 06/18/17 11:58 Dose: 100 ml Ondansetron HCl (Zofran) 4 mg IVPUSH NOW STA Stop: 06/18/17 10:01 Last Admin: 06/18/17 10:36 Dose: 4 mg Ondansetron HCl (Zofran) 4 mg IV Q6H PRN PRN Reason: Nausea/Vomiting Last Admin: 06/18/17 20:35 Dose: 4 mg Pantoprazole Sodium (Protonix Iv) 40 mg IVPUSH ONETIME ONE Stop: 06/18/17 13:21 Last Admin: 06/18/17 13:35 Dose: 40 mg Polyethylene Glycol (Miralax) 17 gm PO DAILY PRN PRN Reason: Constipation Sodium Chloride (Saline Flush) 10 ml FLUSH ASDIRECTED PRN PRN Reason: Keep Vein Open Temazepam (Restoril) 15 mg PO BEDTIME PRN PRN Reason: Sleep Last Admin: 06/20/17 22:05 Dose: 15 mg - Exam General: Reports: Alert, Oriented HEENT: Reports: Mucous Membr. Moist/[place] Neck: Reports: Supple Lungs: Reports: Clear to Auscultation, Normal Respiratory Effort Cardiovascular: Reports: Regular Rate, Regular Rhythm GI/Abdominal Exam: Normal Bowel Sounds, Soft, Non-Tender Skin: Reports: Warm, Dry Neurological: Reports: No New Focal Deficit *Q Meaningful Use (DIS) - VTE *Q VTE Criteria *Q: - Stroke *Q Stroke Criteria *Q: - AMI *Q AMI Criteria *Q:
== END 2017-06-21 09:00 | disposition home or self-care (01) | DRG 139 ==
LOC: CC.ED 09:20 → UNDOADMIN 14:49 → CC.MS 14:49
PROVIDERS: ADMIT Nurse Practitioner; ATTEND Family Medicine
DX: J18.9 Pneumonia, unspecified organism (principal); Z79.899 Other long term (current) drug therapy; R53.1 Weakness; D72.825 Bandemia; R11.2 Nausea with vomiting, unspecified
CPT/HCPCS: 36415; 71020; 74177; 80048; 81001; 82550; 83615; 83880; 84484; 85025; 85379; 85610; 85730; 86140; 87040; 93005; 94640; 96361; 96365; 96375; 99284; A9270-GY; C9113; J1956; J2405; J2550; J7030; J7050; Q9967

== ENCOUNTER 2019-08-05 02:19 | Emergency (ER) | payer BC ==
--- NOTE | 2019-08-05 02:22 | EDM.PDOC ---
ED HPI GENERAL MEDICAL PROBLEM - General Chief Complaint: Abdominal Pain Stated Complaint: abdominal pain Time Seen by Provider: 08/05/19 02:15 Source of Information: Reports: Patient, Family History Limitations: Reports: No Limitations - History of Present Illness INITIAL COMMENTS - FREE TEXT/NARRATIVE: Patient to the emergency department where she advises that she woke up approximately 1 hour ago with severe upper abdominal pain. The patient has had some nausea no vomiting she has had no diarrhea no constipation her last bowel movement was normal today and brown in color. The patient denies any fever chills she denies any back pain, she denies any urinary tract symptoms. The patient has had multiple abdominal surgeries including a LAP-BAND that failed and the saline has been removed from the band however the pain remained in place. Onset: Today, Sudden Duration: Hour(s): Location: Reports: Abdomen Quality: Reports: Ache Severity: Moderate Improves with: Reports: None Worsens with: Reports: None Associated Symptoms: Reports: Nausea/Vomiting (Nausea without vomiting). 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) Abdominal Pain Score (Numeric/FACES): 9 - Related Data Allergies Allergy/AdvReac Type Severity Reaction Status Date / Time codeine Allergy Nausea Verified 08/05/19 02:53 hydrocodone Allergy Itching Verified 08/05/19 02:53 Home Meds: Home Meds Biotin 10,000 mcg PO DAILY 01/13/17 [History] Calcium Carbonate/Vitamin D3 [Calcium 500 + Vit D Caplet] 2 tab PO DAILY [History] Cholecalciferol (Vitamin D3) [Vitamin D3] 5,000 unit PO DAILY 01/13/17 [History] Iron 18 mg PO DAILY 01/13/17 [History] Multivitamin [Multivitamins] 2 tab PO DAILY 01/13/17 [History] buPROPion HCl [Bupropion Xl] 300 mg PO DAILY 01/13/17 [History] Vitamin B Complex [B Complex] 1 each PO DAILY 06/18/17 [History] Pantoprazole [ProTONIX] 40 mg PO DAILY 08/05/19 [History] Past Medical History - Past Surgical History HEENT Surgical History: Reports: Adenoidectomy, Tonsillectomy GI Surgical History: Reports: Bariatric Procedure, Cholecystectomy, Other (See Below) Social & Family History - Family History Family Medical History: Noncontributory - Caffeine Use Caffeine Use: Reports: Coffee ED ROS ENT - Review of Systems Review Of Systems: See Below Constitutional: Reports: No Symptoms. Denies: Fever, Chills, Weakness HEENT: Reports: No Symptoms Respiratory: Reports: No Symptoms. Denies: Shortness of Breath Cardiovascular: Reports: No Symptoms. Denies: Chest Pain Endocrine: Reports: No Symptoms GI/Abdominal: Reports: Abdominal Pain, Nausea. Denies: Black Stool, Bloody Stool, Constipation, Diarrhea, Difficulty Swallowing, Distension, Melena, Vomiting : Reports: No Symptoms Musculoskeletal: Reports: No Symptoms. Denies: Neck Pain, Back Pain Skin: Reports: No Symptoms. Denies: Bruising, Rash Neurological: Reports: No Symptoms Psychiatric: Reports: No Symptoms ED EXAM, ENT - Physical Exam Exam: See Below Exam Limited By: No Limitations General Appearance: Alert, WD/WN, Obese, Thin Ears: Normal External Exam Nose: Normal Inspection Mouth/Throat: Normal Inspection, Normal Lips Head: Atraumatic, Normocephalic Neck: Normal Inspection, Supple, Non-Tender, Full Range of Motion Respiratory/Chest: No Respiratory Distress, Lungs Clear, Normal Breath Sounds Cardiovascular: Normal Peripheral Pulses, Regular Rate, Rhythm, No Murmur GI/Abdominal: Normal Bowel Sounds, Soft, Tender (Epigastric tenderness with palpation). No: Guarding, Rigid Back: Normal Inspection, Full Range of Motion Extremities: Normal Inspection, Normal Range of Motion, Non-Tender, Normal Capillary Refill Neurological: Alert, Oriented, Normal Cognition, Normal Gait, No Motor/Sensory Deficits Psychiatric: Normal Affect, Normal Mood Skin: Warm, Dry, Intact, Normal Color, No Rash Course - Vital Signs Text/Narrative:: 0312, the patient CBC and general chemistries including lipase are normal. The patient have a CT of the abdomen pelvis with IV and oral contrast. The patient has been given normal saline 1 L bolus as well as Protonix 40 mg IV, Zofran 4 mg IV and Dilaudid 1 mg IV. 0426 the patient has had significant relief with the Dilaudid IV. The patient' s CT is scheduled to be completed at 0600 this morning. 0713 the radiologist called and advised that the CT is essentially neg, possibly could be some distal esophagitis, but suspect this is chronic, no other acute findings Last Recorded V/S: Last Vital Signs Temp 36.3 C 08/05/19 02:20 Pulse 81 08/05/19 02:20 Resp 16 08/05/19 02:20 BP 149/86 H 08/05/19 02:20 Pulse Ox 100 08/05/19 02:20 - Orders/Labs/Meds Orders: Active Orders 24 hr Category Date Time Status Abdomen Pelvis w Cont [CT] Stat Exams 08/05/19 03:02 Ordered Pantoprazole [ProTONIX IV] Med 08/05/19 02:30 Active 40 mg IVPUSH Q24H Sodium Chloride 0.9% [Normal Saline] 1,000 ml Med 08/05/19 03:15 Active IV ASDIRECTED Medication Orders Sodium Chloride (Normal Saline) 1,000 mls @ 100 mls/hr IV ASDIRECTED [place] Last Admin: 08/05/19 03:36 Dose: 100 mls/hr Pantoprazole Sodium (Protonix Iv) 40 mg IVPUSH Q24H [place] Last Admin: 08/05/19 02:41 Dose: 40 mg Labs: Laboratory Tests 08/05/19 08/05/19 08/05/19 Range/Units 02:23 02:35 02:35 WBC 7.6 (5.0-10.0) 10^3/uL RBC 4.74 (4.00-5.50) 10^6/uL Hgb 14.0 (12.0-16.0) g/dL Hct 42.3 (37.0-47.0) % MCV 89.2 (82.0-94.0) fL MCH 29.5 (27.0-32.0) pg MCHC 33.1 (33.0-38.0) g/dL RDW Coeff of [place] 13.8 (11.0-15.0) % Plt Count 286 (150-400) 10^3/uL Neut % (Auto) 56.3 (35-85) % Lymph % (Auto) 33.6 (10-55) % [place] % (Auto) 8.0 (0-16) % Eos % (Auto) 1.8 (0-5) % Baso % (Auto) 0.3 (0-3) % Neut # (Auto) 4.28 (1.80-7.00) 10^3/uL Lymph # (Auto) 2.56 (1.00-4.80) 10^3/uL [place] # (Auto) 0.61 (0.00-0.80) 10^3/uL Eos # (Auto) 0.14 (0.00-0.45) 10^3/uL Baso # (Auto) 0.02 10^3/uL Sodium 144 (136-145) mEq/L Potassium 4.1 (3.5-5.0) mEq/L Chloride 106 (98-106) mEq/L Carbon Dioxide 28 (21-32) mmol/L BUN 14 (7-18) mg/dL Creatinine 0.7 (0.6-1.0) mg/dL Est Cr Clr Drug Dosing 95.91 mL/min Estimated GFR (MDRD) > 60 (>=60) mL/min Glucose 99 D (75-99) mg/dL Lactic Acid (0.4-2.0) mmol/L Calcium 9.1 (8.4-10.1) mg/dL Total Bilirubin 0.3 (0.0-1.0) mg/dL AST 22 (15-37) U/L ALT 27 (12-78) U/L Alkaline Phosphatase 108 (46-116) U/L Total Protein 6.7 (6.4-8.2) g/dL Albumin 3.5 (3.4-5.0) g/dL Lipase 156 (73-393) U/L Urine Color Yellow (YELLOW) Urine Appearance Clear (CLEAR) Urine pH 6.0 (4.5-8.0) Ur Specific [place] 1.020 (1.003-1.020) Urine Protein Negative (NEGATIVE) mg/dL Urine Glucose (UA) Negative (NEGATIVE) mg/dL Urine Ketones Negative (NEGATIVE) mg/dL Urine Occult Blood Negative (NEGATIVE) Urine Nitrite Negative (NEGATIVE) Urine Bilirubin Negative (NEGATIVE) Urine Urobilinogen 0.2 (0.2-1.0) EU/dL Ur Leukocyte Esterase Negative (NEGATIVE) 08/05/19 Range/Units 02:35 WBC (5.0-10.0) 10^3/uL RBC (4.00-5.50) 10^6/uL Hgb (12.0-16.0) g/dL Hct (37.0-47.0) % MCV (82.0-94.0) fL MCH (27.0-32.0) pg MCHC (33.0-38.0) g/dL RDW Coeff of Tracy (11.0-15.0) % Plt Count (150-400) 10^3/uL Neut % (Auto) (35-85) % Lymph % (Auto) (10-55) % [place] % (Auto) (0-16) % Eos % (Auto) (0-5) % Baso % (Auto) (0-3) % Neut # (Auto) (1.80-7.00) 10^3/uL Lymph # (Auto) (1.00-4.80) 10^3/uL [place] # (Auto) (0.00-0.80) 10^3/uL Eos # (Auto) (0.00-0.45) 10^3/uL Baso # (Auto) 10^3/uL Sodium (136-145) mEq/L Potassium (3.5-5.0) mEq/L Chloride (98-106) mEq/L Carbon Dioxide (21-32) mmol/L BUN (7-18) mg/dL Creatinine (0.6-1.0) mg/dL Est Cr Clr Drug Dosing mL/min Estimated GFR (MDRD) (>=60) mL/min Glucose (75-99) mg/dL Lactic Acid 1.0 (0.4-2.0) mmol/L Calcium (8.4-10.1) mg/dL Total Bilirubin (0.0-1.0) mg/dL AST (15-37) U/L ALT (12-78) U/L Alkaline Phosphatase (46-116) U/L Total Protein (6.4-8.2) g/dL Albumin (3.4-5.0) g/dL Lipase (73-393) U/L Urine Color (YELLOW) Urine Appearance (CLEAR) Urine pH (4.5-8.0) Ur Specific [place] (1.003-1.020) Urine Protein (NEGATIVE) mg/dL Urine Glucose (UA) (NEGATIVE) mg/dL Urine Ketones (NEGATIVE) mg/dL Urine Occult Blood (NEGATIVE) Urine Nitrite (NEGATIVE) Urine Bilirubin (NEGATIVE) Urine Urobilinogen (0.2-1.0) EU/dL Ur Leukocyte Esterase (NEGATIVE) Meds: Medications Generic Name Dose Route Start Last Admin Trade Name Freq PRN Reason Stop Dose Admin Sodium Chloride 1,000 mls @ 100 mls/hr 08/05/19 03:15 08/05/19 03:36 Normal Saline IV 100 mls/hr ASDIRECTED [place] Administration Pantoprazole Sodium 40 mg 08/05/19 02:30 08/05/19 02:41 Protonix Iv IVPUSH 40 mg Q24H [place] Administration Discontinued Medications Generic Name Dose Route Start Last Admin Trade Name Freq PRN Reason Stop Dose Admin Barium Sulfate 900 ml 08/05/19 04:17 08/05/19 06:21 Readi-Cat 2 PO 08/05/19 04:18 900 ml ONETIME ONE Administration Hydromorphone HCl 1 mg 08/05/19 03:06 08/05/19 03:10 Dilaudid IVPUSH 08/05/19 03:07 1 mg ONETIME ONE Administration Hydromorphone HCl 1 mg 08/05/19 05:10 08/05/19 05:00 Dilaudid IVPUSH 08/05/19 05:11 1 mg ONETIME ONE Administration Sodium Chloride 1,000 mls @ 999 mls/hr 08/05/19 02:23 08/05/19 02:36 Normal Saline IV 08/05/19 03:23 999 mls/hr .BOLUS ONE Administration Iopamidol 100 ml 08/05/19 04:17 08/05/19 06:20 Isovue-370 (76%) IVPUSH 08/05/19 04:18 100 ml ONETIME ONE Administration Ondansetron HCl 4 mg 08/05/19 02:25 08/05/19 02:40 Zofran IVPUSH 08/05/19 02:26 4 mg ONETIME ONE Administration Departure - Departure Time of Disposition: 07:14 Disposition: Home, Self-Care 01 Condition: Good Clinical Impression: Esophagitis, Abdominal pain - Discharge Information *PRESCRIPTION DRUG MONITORING PROGRAM REVIEWED*: Not Applicable *COPY OF PRESCRIPTION DRUG MONITORING REPORT IN PATIENT SAJI: Not Applicable Instructions: Abdominal Pain, Adult, [id number], Esophagitis Referrals: PCP,None [Primary Care Provider] - Forms: ED Department Discharge Additional Instructions: rest continue your Protonix no spicy or greasy foods follow up with 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 or 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 adviser for further evaluation and treatment, call in am for an appointment time return to the ER sooner if worse or problems - Problem List & Annotations (1) Abdominal pain SNOMED Code(s): 98089544 Code(s): R10.9 - UNSPECIFIED ABDOMINAL PAIN Status: Acute Priority: Medium Current Visit: Yes Qualifiers: Abdominal location: epigastric Qualified Code(s): R10.13 - Epigastric pain (2) Esophagitis SNOMED Code(s): 90026848 Code(s): K20.9 - ESOPHAGITIS, UNSPECIFIED Status: Acute Priority: Medium Current Visit: Yes - Problem List Review Problem List Initiated/Reviewed/Updated: Yes - My Orders Last 24 Hours: My Active Orders 08/05/19 02:30 Pantoprazole [ProTONIX IV] 40 mg IVPUSH Q24H 08/05/19 03:02 Abdomen Pelvis w Cont [CT] Stat 08/05/19 03:15 Sodium Chloride 0.9% [Normal Saline] 1,000 ml IV ASDIRECTED - Assessment/Plan Last 24 Hours: My Active Orders 08/05/19 02:30 Pantoprazole [ProTONIX IV] 40 mg IVPUSH Q24H 08/05/19 03:02 Abdomen Pelvis w Cont [CT] Stat 08/05/19 03:15 Sodium Chloride 0.9% [Normal Saline] 1,000 ml IV ASDIRECTED Plan: as above
[2019-08-05 02:23] VITALS: BP 149/86; PULSE 81
[2019-08-05] MEDS ORDERED: Sodium Chloride 0.9% 1,000 ML IV ONE (02:23)
[2019-08-05] MEDS ORDERED: Ondansetron 4 MG/2 ML SDV IVPUSH ONE (02:25)
[2019-08-05] MEDS ORDERED: Pantoprazole 40 MG Vial IVPUSH SCH (02:30)
[2019-08-05 03:01] LABS: CHLORIDE,CL 106 mEq/L (98-106); SODIUM,NA 144 mEq/L (136-145)
[2019-08-05] MEDS ORDERED: HYDROmorphone 1 MG/ML Syringe IVPUSH ONE ×2 (03:06→05:10)
[2019-08-05] MEDS ORDERED: Sodium Chloride 0.9% 1,000 ML IV SCH (03:15)
[2019-08-05] MEDS: Barium Sulfate Oral Susp 450 ML Bottle PO ONE ×2 (03:45→06:21)
[2019-08-05] MEDS ORDERED: Iopamidol 755 Mg/ML 100 ML Bottle IVPUSH ONE (04:17)
== END 2019-08-05 07:35 | disposition home or self-care (01) ==
LOC: CC.ED 02:19
DX: K20.9 Esophagitis, unspecified (principal); Z90.49 Acquired absence of other specified parts of digestive tract; Z98.84 Bariatric surgery status; Z88.5 Allergy status to narcotic agent; Z79.899 Other long term (current) drug therapy
CPT/HCPCS: 36415; 74177; 80053; 81003; 83605; 83690; 85025; 96361; 96374; 96375; 96376; 99284-25; C9113; J1170; J2405; J7030; Q9967

== ENCOUNTER 2019-11-20 06:42 | Emergency (ER) | payer BC ==
[2019-11-20 07:03] VITALS: BP 124/71; PULSE 67
[2019-11-20] MEDS ORDERED: Ketorolac 30 MG/ML SDV IVPUSH ONE (07:23)
[2019-11-20] MEDS ORDERED: Sodium Chloride 0.9% 500 ML IV SCH ×2 (07:30→07:34)
[2019-11-20 07:39] LABS: CHLORIDE,CL 105 mEq/L (98-106); SODIUM,NA 138 mEq/L (136-145)
[2019-11-20] MEDS ORDERED: Ondansetron 4 MG/2 ML SDV IVPUSH ONE (09:13)
[2019-11-20] MEDS ORDERED: Iopamidol 755 Mg/ML 100 ML Bottle IVPUSH ONE (09:36)
[2019-11-20] MEDS ORDERED: Barium Sulfate Oral Susp 450 ML Bottle PO ONE (09:36)
--- NOTE | 2019-11-20 11:04 | EDM.PDOC ---
ED HPI GENERAL MEDICAL PROBLEM - General Chief Complaint: Abdominal Pain Stated Complaint: ABD PAIN Time Seen by Provider: 11/20/19 07:25 Source of Information: Reports: Patient History Limitations: Reports: No Limitations - History of Present Illness INITIAL COMMENTS - FREE TEXT/NARRATIVE: Salma is a 49 year old female who presents to the ED with c/o upper abdominal pain. She reports she awoke with the pain around 5 am this morning. Was feeling fine last night when she went to bed. Has been seen in ED in past for similar issues. Reports pain in past was found to be from eroding lap band. Apparently had originally had lap band placed in [place], approximately 12 years ago. She had lap band removed in September 2019 in [place], [place]. Reports she had been doing well since then. Reports she was also nauseated this morning. Did take Zofran prior to ED presentation. Rates pain 9/10. Denies any fever, chills, malaise, vomiting, diarrhea, urinary symptoms. Was recently treated for UTI. Onset: Today, Sudden Onset Date: 11/20/19 Onset Time: 05:00 Duration: Constant Location: Reports: Abdomen (upper) Quality: Reports: Sharp Severity: Severe Associated Symptoms: Reports: Loss of Appetite, Nausea/Vomiting (nausea, no vomiting). Denies: Confusion, Chest Pain, Cough, cough w sputum, Diaphoresis, Fever/Chills, Headaches, Malaise, Rash, Seizure, Shortness of Breath, Syncope, Weakness Upper Abdomen Pain Score (Numeric/FACES): 9 - Related Data Allergies Allergy/AdvReac Type Severity Reaction Status Date / Time codeine Allergy Nausea Verified 11/20/19 06:58 hydrocodone Allergy Itching Verified 11/20/19 06:58 Home Meds: Home Meds Biotin 10,000 mcg PO DAILY 01/13/17 [History] Calcium Carbonate/Vitamin D3 [Calcium 500-Vit D3 125 Caplet] 2 tab PO DAILY 07/22 [History] Cholecalciferol (Vitamin D3) [Vitamin D3] 5,000 unit PO DAILY 01/13/17 [History] Iron 18 mg PO DAILY 01/13/17 [History] Multivitamin [Multivitamins] 2 tab PO DAILY 01/13/17 [History] buPROPion HCL [Bupropion Xl] 300 mg PO DAILY 01/13/17 [History] Vitamin B Complex [B Complex] 1 each PO DAILY 06/18/17 [History] Sulfamethoxazole/Trimethoprim [Bactrim Ds Tablet] 1 each PO BID 11/20/19 [ History] Past Medical History Gastrointestinal History: Reports: Bowel Obstruction - Past Surgical History HEENT Surgical History: Reports: Adenoidectomy, Tonsillectomy GI Surgical History: Reports: Bariatric Procedure, Cholecystectomy, Other (See Below) Other GI Surgeries/Procedures: lap band removal Social & Family History - Family History Family Medical History: Noncontributory - Tobacco Use Smoking Status *Q: Never Smoker - Caffeine Use Caffeine Use: Reports: Coffee - Recreational Drug Use Recreational Drug Use: No ED ROS GENERAL - Review of Systems Review Of Systems: See Below Constitutional: Reports: Decreased Appetite. Denies: Fever, Chills, Malaise, Weakness, Fatigue, Weight Loss HEENT: Reports: No Symptoms Respiratory: Reports: No Symptoms. Denies: Shortness of Breath, Cough, Sputum Cardiovascular: Reports: No Symptoms. Denies: Chest Pain Endocrine: Reports: No Symptoms GI/Abdominal: Reports: Abdominal Pain, Decreased Appetite, Nausea. Denies: Black Stool, Bloody Stool, Constipation, Diarrhea, Distension, Flatus, Hematemesis, Vomiting : Reports: No Symptoms. Denies: Dysuria, Frequency, Urgency Musculoskeletal: Reports: No Symptoms Skin: Reports: No Symptoms Neurological: Reports: No Symptoms Psychiatric: Reports: No Symptoms Hematologic/Lymphatic: Reports: No Symptoms Immunologic: Reports: No Symptoms ED EXAM, GI/ABD - Physical Exam Exam: See Below Exam Limited By: No Limitations General Appearance: Alert, WD/WN, Mild Distress Throat/Mouth: Normal Inspection, Normal Lips, Normal Teeth, Normal Gums, Normal Oropharynx, Normal Voice, No Airway Compromise Head: Atraumatic, Normocephalic Neck: Normal Inspection, Supple, Non-Tender, Full Range of Motion Respiratory/Chest: No Respiratory Distress, Lungs Clear, Normal Breath Sounds, No Accessory Muscle Use, Chest Non-Tender Cardiovascular: Normal Peripheral Pulses, Regular Rate, Rhythm, No Edema, No Gallop, No JVD, No Murmur, No Rub GI/Abdominal Exam: Normal Bowel Sounds, Soft, No Abnormal Bruit, Guarding, Tender, Other (scar). No: Distended, Rigid Back Exam: Normal Inspection, Full Range of Motion. No: CVA Tenderness (L), CVA Tenderness (R) Extremities: Normal Inspection, Normal Range of Motion, Non-Tender, Normal Capillary Refill, No Pedal Edema Neurological: Alert, Oriented, CN II-XII Intact, Normal Cognition, Normal Gait, Normal Reflexes, No Motor/Sensory Deficits Psychiatric: Normal Affect, Normal Mood Skin Exam: Warm, Dry, Intact, Normal Color, No Rash Course - Vital Signs Last Recorded V/S: Last Vital Signs Temp 97.8 F 11/20/19 07:01 Pulse 67 11/20/19 07:01 Resp 18 11/20/19 07:01 BP 124/71 11/20/19 07:01 Pulse Ox 100 11/20/19 07:01 - Orders/Labs/Meds Orders: Active Orders 24 hr Category Date Time Status Abdomen Pelvis w Cont [CT] Stat Exams 11/20/19 07:44 Taken Labs: Laboratory Tests 11/20/19 11/20/19 11/20/19 Range/Units 07:14 07:14 07:14 WBC 4.5 L (5.0-10.0) 10^3/uL RBC 4.43 (4.00-5.50) 10^6/uL Hgb 12.8 (12.0-16.0) g/dL Hct 39.8 (37.0-47.0) % MCV 89.8 (82.0-94.0) fL MCH 28.9 (27.0-32.0) pg MCHC 32.2 L (33.0-38.0) g/dL RDW Coeff of [place] 13.4 (11.0-15.0) % Plt Count 266 (150-400) 10^3/uL Neut % (Auto) 52.1 (35-85) % Lymph % (Auto) 34.7 (10-55) % [place] % (Auto) 10.4 (0-16) % Eos % (Auto) 2.4 (0-5) % Baso % (Auto) 0.4 (0-3) % Neut # (Auto) 2.35 (1.80-7.00) 10^3/uL Lymph # (Auto) 1.57 (1.00-4.80) 10^3/uL [place] # (Auto) 0.47 (0.00-0.80) 10^3/uL Eos # (Auto) 0.11 (0.00-0.45) 10^3/uL Baso # (Auto) 0.02 10^3/uL Sodium 138 (136-145) mEq/L Potassium 3.6 (3.5-5.0) mEq/L Chloride 105 (98-106) mEq/L Carbon Dioxide 27 (21-32) mmol/L BUN 9 (7-18) mg/dL Creatinine 0.7 (0.6-1.0) mg/dL Est Cr Clr Drug Dosing 92.46 mL/min Estimated GFR (MDRD) > 60 (>=60) mL/min Glucose 93 (75-99) mg/dL Calcium 8.8 (8.4-10.1) mg/dL Total Bilirubin 0.3 (0.0-1.0) mg/dL AST 19 (15-37) U/L ALT 22 (12-78) U/L Alkaline Phosphatase 106 (46-116) U/L C-Reactive Protein < 0.2 L (0.2-0.8) mg/dL Total Protein 6.4 (6.4-8.2) g/dL Albumin 3.3 L (3.4-5.0) g/dL Amylase 55 (25-115) U/L Lipase 119 (73-393) U/L Urine Color Yellow (YELLOW) Urine Appearance Clear (CLEAR) Urine pH 7.0 (4.5-8.0) Ur Specific [place] 1.020 (1.003-1.020) Urine Protein Negative (NEGATIVE) mg/dL Urine Glucose (UA) Negative (NEGATIVE) mg/dL Urine Ketones Negative (NEGATIVE) mg/dL Urine Occult Blood Trace-intact H (NEGATIVE) Urine Nitrite Negative (NEGATIVE) Urine Bilirubin Negative (NEGATIVE) Urine Urobilinogen 0.2 (0.2-1.0) EU/dL Ur Leukocyte Esterase Negative (NEGATIVE) Urine RBC 0-5 (0-5) /HPF Urine WBC Not seen (0-5) /HPF Ur Squamous Epith Cells Few H (NOT SEEN) /HPF Meds: Medications Discontinued Medications Generic Name Dose Route Start Last Admin Trade Name Freq PRN Reason Stop Dose Admin Barium Sulfate 900 ml 11/20/19 09:36 11/20/19 10:34 Readi-Cat 2 PO 11/20/19 09:37 900 ml ONETIME ONE Administration Sodium Chloride 500 mls @ 999 mls/hr 11/20/19 07:30 11/20/19 07:30 Normal Saline IV 999 mls/hr .BOLUS [place] Administration Sodium Chloride 500 mls @ 999 mls/hr 11/20/19 07:34 11/20/19 08:02 Normal Saline IV 999 mls/hr BOLUS [place] Administration Iopamidol 100 ml 11/20/19 09:36 11/20/19 10:34 Isovue-370 (76%) IVPUSH 11/20/19 09:37 100 ml ONETIME ONE Administration Ketorolac Tromethamine 30 mg 11/20/19 07:23 11/20/19 07:31 Toradol IVPUSH 11/20/19 07:24 30 mg ONETIME ONE Administration Ondansetron HCl 4 mg 11/20/19 09:13 11/20/19 09:17 Zofran IVPUSH 11/20/19 09:14 4 mg ONETIME ONE Administration Departure - Departure Time of Disposition: 13:55 Disposition: Home, Self-Care 01 Condition: Fair Clinical Impression: History of removal of laparoscopic gastric banding device Abdominal pain Qualifiers: Abdominal location: epigastric Qualified Code(s): R10.13 - Epigastric pain - Discharge Information *PRESCRIPTION DRUG MONITORING PROGRAM REVIEWED*: Not Applicable *COPY OF PRESCRIPTION DRUG MONITORING REPORT IN PATIENT SAJI: Not Applicable Instructions: Abdominal Pain, Adult Forms: ED Department Discharge Additional Instructions: - Recommend heat to area as needed for comfort - Alternate Tylenol and ibuprofen as needed for pain - Try to move around as much as possible to keep bowels moving - Soft or liquid diet until symptoms improve - Follow up for recheck with surgeon, sooner if pain persists - Return to ED for emergent needs Sepsis Event Note - Evaluation Sepsis Screening Result: No Definite Risk - Focused Exam Vital Signs: Vital Signs Temp Pulse Resp BP Pulse Ox 11/20/19 07:01 97.8 F 67 18 124/71 100 Date Exam was Performed: 11/20/19 Time Exam was Performed: 16:53 - Problem List & Annotations (1) Abdominal pain SNOMED Code(s): 42535181 Code(s): R10.9 - UNSPECIFIED ABDOMINAL PAIN Status: Acute Priority: Medium Qualifiers: Abdominal location: epigastric Qualified Code(s): R10.13 - Epigastric pain (2) History of removal of laparoscopic gastric banding device SNOMED Code(s): 708201373 Code(s): Z98.84 - BARIATRIC SURGERY STATUS Status: Acute - My Orders Last 24 Hours: My Active Orders 11/20/19 07:44 Abdomen Pelvis w Cont [CT] Stat - Assessment/Plan Last 24 Hours: My Active Orders 11/20/19 07:44 Abdomen Pelvis w Cont [CT] Stat Assessment:: Abdominal pain Status Post Removal of Lap Banding Plan: Patient presented to ED with c/o 9/10 upper abdominal pain. Given history of eroding lap band and recent surgery, opted to proceed with CT abdominal/pelvis to rule out perforation. Throughout ED stay, patient received 1 L NS bolus, 4 mg Zofran, and 30 mg Toradol. Pain did improve with Toradol and patient rested well during ED stay while awaiting results. CT abdomen/pelvis negative for any surgical complications or acute findings. Discussed these findings with patient. No cause of abdominal pain identified. Recommend patient follow up with surgeon if pain persists. Return to Ed for any emergent needs.
== END 2019-11-20 14:05 | disposition home or self-care (01) ==
LOC: CC.ED 06:42
DX: R10.13 Epigastric pain (principal); Z90.49 Acquired absence of other specified parts of digestive tract; Z98.84 Bariatric surgery status; Z88.5 Allergy status to narcotic agent; Z79.899 Other long term (current) drug therapy
CPT/HCPCS: 36415; 74177; 80053; 81001; 82150; 83690; 85025; 86140; 96361; 96374; 96375; 99284-25; J1885; J2405; J7040; Q9967

== ENCOUNTER 2023-09-28 16:52 | Emergency (ER) | payer BC ==
[2023-09-28] MEDS ORDERED: Ketorolac 30 MG/ML SDV IM ONE (17:05)
[2023-09-28] MEDS ORDERED: Ondansetron 4 MG Tab.DIS PO ONE (17:06)
[2023-09-28] MEDS ORDERED: oxyCODONE 5 MG Tab PO ONE (17:06)
[2023-09-28 17:13] VITALS: BP 142/91; PULSE 84
[2023-09-28] MEDS ORDERED: Bupivacaine 0.25% 10 ML SDV INJECT ONE (17:15)
[2023-09-28] MEDS ORDERED: Bupivacaine 0.5% 10 ML SDV ONE (17:33)
[2023-09-28] MEDS: Bupivacaine 0.5% 10 ML SDV INJECT ONE ×2 (17:35→17:36)
[2023-09-28] MEDS ORDERED: Take Home: Acetaminophen/oxyCODONE 325-5 MG, 2 Tab Pack PO ONE (17:55)
== END 2023-09-28 18:14 | disposition home or self-care (01) ==
LOC: CC.ED 16:52
DX: S52.532A Colles' fracture of left radius, initial encounter for closed fracture (principal); Z88.5 Allergy status to narcotic agent; Z79.899 Other long term (current) drug therapy; W00.0XXA Fall on same level due to ice and snow, initial encounter; Y93.K1 Activity, walking an animal
CPT/HCPCS: 25605; 73100-LT; 96372; 99283-25; A9270-GY; J0665; J1885

== ENCOUNTER 2025-02-19 19:06 | Inpatient (IN) | payer BC ==
[2025-02-19] MEDS: Morphine 4 MG/ML VIAL IVPUSH ONE (19:30)
[2025-02-19] MEDS: Ondansetron 4 MG/2 ML SDV IVPUSH STA ×2 (19:31→22:00)
[2025-02-19] MEDS: Sodium Chloride 0.9% 1,000 ML IV ONE (19:31)
[2025-02-19 19:43] LABS: EOSINOPHILS ABSOLUTE AUTO 0.04 10^3/uL (0.00-1.50); HEMATOCRIT 38.1 % (37.0-47.0); HEMOGLOBIN 15.2 g/dL (12.0-16.0); LYMPHOCYTES ABSOLUTE AUTO 1.69 10^3/uL (0.60-5.00); LYMPHOCYTES PERCENT AUTO 41.3 % (24-44); MEAN CORPUSCULAR HEMOGLOBIN 36.7 pg (27.0-32.0); MEAN CORPUSCULAR HGB CONC 39.9 g/dL (32.0-36.0); MONOCYTES ABSOLUTE AUTO 0.38 10^3/uL (0.00-1.50); MONOCYTES PERCENT AUTO 9.3 % (0-10); NEUTROPHILS ABSOLUTE AUTO 1.98 x10^3/uL (1.80-8.00); NEUTROPHILS PERCENT AUTO 48.4 % (41-71); PLATELET COUNT,PLT 213 10^3/uL (150-400); RED BLOOD CELL COUNT 4.14 x10^6/uL (4.00-5.50); WHITE BLOOD CELL COUNT,WBC 4.1 10^3/uL (4.0-11.0)
[2025-02-19 19:54] LABS: APPEARANCE,URINE CLEAR (CLEAR); BILIRUBIN,URINE NEGATIVE (NEGATIVE); COLOR,URINE YELLOW (YELLOW); GLUCOSE,URINE NEGATIVE (NEGATIVE); KETONES,URINE NEGATIVE (NEGATIVE); LEUKOCYTE ESTERASE,URINE NEGATIVE (NEGATIVE); NITRITE,URINE NEGATIVE (NEGATIVE); OCCULT BLOOD,URINE NEGATIVE (NEGATIVE); PROTEIN,URINE NEGATIVE (NEGATIVE); UROBILINOGEN,URINE 0.2 EU/dL (0.2-1.0)
[2025-02-19 19:57] LABS: ALANINE AMINOTRANSFERASE,ALT 40 U/L (12-78); ALBUMIN 3.7 g/dL (3.4-5.0); ALKALINE PHOSPHATASE 133 U/L (46-116); ASPARTATE AMNIOTRANSFERASE,AST 29 U/L (15-37); BILIRUBIN TOTAL 0.6 mg/dL (0.0-1.0); BLOOD UREA NITROGEN,BUN 14 mg/dL (7-18); CALCIUM 9.7 mg/dL (8.4-10.1); CARBON DIOXIDE,CO2 30 mmol/L (21-32); CHLORIDE,CL 103 mEq/L (98-106); CREATININE 0.7 mg/dL (0.6-1.0); EST CRCL DRUG DOSING (CG) 70.68 mL/min; GLUCOSE RANDOM 90 mg/dL (75-99); LIPASE 42 U/L (16-77); MAGNESIUM 1.9 mg/dL (1.8-2.4); POTASSIUM,K 4.9 mEq/L (3.5-5.0); PROTEIN TOTAL,TP 6.4 g/dL (6.4-8.2); SODIUM,NA 142 mEq/L (136-145)
[2025-02-19 19:59] LABS: C-REACTIVE PROTEIN < 0.50 mg/dL (<=0.50); ESTIMATED GFR 101 mL/min (>=60)
[2025-02-19] MEDS: Iopamidol 755 Mg/ML 100 ML Bottle IVPUSH ONE (20:00)
[2025-02-19] MEDS: HYDROmorphone 1 MG/ML Syringe IVPUSH ONE (21:45)
[2025-02-20] MEDS: Lactated Ringers 1,000 ML IV SCH (00:28)
[2025-02-20 07:36] LABS: BASOPHILS ABSOLUTE AUTO 0.02 10^3/uL (0.00-0.50); BASOPHILS PERCENT AUTO 0.3 % (0-1); EOSINOPHILS ABSOLUTE AUTO 0.06 10^3/uL (0.00-1.50); HEMOGLOBIN 12.3 g/dL (12.0-16.0); IMMATURE GRAN ABSOLUTE AUTO 0.02 10^3/uL (0.00-0.49); IMMATURE GRAN PERCENT AUTO 0.3 % (0.0-4.9); LYMPHOCYTES ABSOLUTE AUTO 0.89 10^3/uL (0.60-5.00); LYMPHOCYTES PERCENT AUTO 14.5 % (24-44); MEAN CORPUSCULAR HEMOGLOBIN 30.7 pg (27.0-32.0); MEAN CORPUSCULAR HGB CONC 33.2 g/dL (32.0-36.0); MEAN CORPUSCULAR VOLUME 92.3 fL (83.0-97.0); MONOCYTES ABSOLUTE AUTO 0.46 10^3/uL (0.00-1.50); MONOCYTES PERCENT AUTO 7.5 % (0-10); NEUTROPHILS ABSOLUTE AUTO 4.69 x10^3/uL (1.80-8.00); NEUTROPHILS PERCENT AUTO 76.4 % (41-71); PLATELET COUNT,PLT 181 10^3/uL (150-400); RED BLOOD CELL COUNT 4.01 x10^6/uL (4.00-5.50); WHITE BLOOD CELL COUNT,WBC 6.1 10^3/uL (4.0-11.0)
[2025-02-20 07:43] LABS: ALBUMIN 3.1 g/dL (3.4-5.0); BILIRUBIN TOTAL 0.6 mg/dL (0.0-1.0); CALCIUM 8.7 mg/dL (8.4-10.1); CREATININE 0.7 mg/dL (0.6-1.0); EST CRCL DRUG DOSING (CG) 70.49 mL/min; MAGNESIUM 1.6 mg/dL (1.8-2.4); POTASSIUM,K 3.8 mEq/L (3.5-5.0); PROTEIN TOTAL,TP 5.7 g/dL (6.4-8.2)
[2025-02-20] MEDS: HYDROmorphone 1 MG/ML Syringe IVPUSH PRN (07:55)
[2025-02-20] MEDS: Ondansetron 4 MG/2 ML SDV IVPUSH PRN (07:56)
[2025-02-20] MEDS ORDERED: Ondansetron 4 MG/2 ML SDV IVPUSH PRN (11:01)
[2025-02-20 15:03] LABS: BASOPHILS ABSOLUTE AUTO 0.02 10^3/uL (0.00-0.50); BASOPHILS PERCENT AUTO 0.5 % (0-1); EOSINOPHILS ABSOLUTE AUTO 0.05 10^3/uL (0.00-1.50); EOSINOPHILS PERCENT AUTO 1.1 % (0-6); HEMATOCRIT 39.5 % (37.0-47.0); HEMOGLOBIN 13.1 g/dL (12.0-16.0); LYMPHOCYTES ABSOLUTE AUTO 0.64 10^3/uL (0.60-5.00); LYMPHOCYTES PERCENT AUTO 14.4 % (24-44); MEAN CORPUSCULAR HEMOGLOBIN 30.7 pg (27.0-32.0); MEAN CORPUSCULAR HGB CONC 33.2 g/dL (32.0-36.0); MEAN CORPUSCULAR VOLUME 92.5 fL (83.0-97.0); MONOCYTES ABSOLUTE AUTO 0.28 10^3/uL (0.00-1.50); MONOCYTES PERCENT AUTO 6.3 % (0-10); NEUTROPHILS ABSOLUTE AUTO 3.44 x10^3/uL (1.80-8.00); NEUTROPHILS PERCENT AUTO 77.7 % (41-71); PLATELET COUNT,PLT 178 10^3/uL (150-400); RED BLOOD CELL COUNT 4.27 x10^6/uL (4.00-5.50); WHITE BLOOD CELL COUNT,WBC 4.4 10^3/uL (4.0-11.0)
[2025-02-20 15:12] LABS: ALBUMIN 3.4 g/dL (3.4-5.0); BILIRUBIN TOTAL 0.9 mg/dL (0.0-1.0); CREATININE 0.7 mg/dL (0.6-1.0); EST CRCL DRUG DOSING (CG) 70.49 mL/min; MAGNESIUM 1.6 mg/dL (1.8-2.4); POTASSIUM,K 4.7 mEq/L (3.5-5.0); PROTEIN TOTAL,TP 5.9 g/dL (6.4-8.2)
[2025-02-21] MEDS: Iopamidol 755 Mg/ML 100 ML Bottle IVPUSH ONE (07:54)
[2025-02-21 07:59] LABS: BILIRUBIN TOTAL 0.8 mg/dL (0.0-1.0); CALCIUM 8.5 mg/dL (8.4-10.1); CREATININE 0.7 mg/dL (0.6-1.0); EST CRCL DRUG DOSING (CG) 70.49 mL/min; MAGNESIUM 1.4 mg/dL (1.8-2.4); POTASSIUM,K 3.7 mEq/L (3.5-5.0); PROTEIN TOTAL,TP 5.5 g/dL (6.4-8.2)
[2025-02-21] MEDS: Magnesium Sulfate 2 GM/50 mL 2 GM in Premix Bag 1 BAG IV ONE (10:23)
[2025-02-22 07:20] LABS: BASOPHILS ABSOLUTE AUTO 0.02 10^3/uL (0.00-0.50); BASOPHILS PERCENT AUTO 0.4 % (0-1); EOSINOPHILS ABSOLUTE AUTO 0.07 10^3/uL (0.00-1.50); EOSINOPHILS PERCENT AUTO 1.5 % (0-6); HEMATOCRIT 38.5 % (37.0-47.0); LYMPHOCYTES PERCENT AUTO 21.4 % (24-44); MEAN CORPUSCULAR HGB CONC 33.8 g/dL (32.0-36.0); MEAN CORPUSCULAR VOLUME 91.9 fL (83.0-97.0); MONOCYTES ABSOLUTE AUTO 0.36 10^3/uL (0.00-1.50); MONOCYTES PERCENT AUTO 7.7 % (0-10); NEUTROPHILS ABSOLUTE AUTO 3.22 x10^3/uL (1.80-8.00); PLATELET COUNT,PLT 208 10^3/uL (150-400); RED BLOOD CELL COUNT 4.19 x10^6/uL (4.00-5.50); WHITE BLOOD CELL COUNT,WBC 4.7 10^3/uL (4.0-11.0)
[2025-02-22 07:53] LABS: ALANINE AMINOTRANSFERASE,ALT 153 U/L (12-78); ALKALINE PHOSPHATASE 174 U/L (46-116); ASPARTATE AMNIOTRANSFERASE,AST 109 U/L (15-37); BILIRUBIN TOTAL 0.7 mg/dL (0.0-1.0); BLOOD UREA NITROGEN,BUN 13 mg/dL (7-18); CALCIUM 8.7 mg/dL (8.4-10.1); CARBON DIOXIDE,CO2 27 mmol/L (21-32); CHLORIDE,CL 102 mEq/L (98-106); CREATININE 0.8 mg/dL (0.6-1.0); EST CRCL DRUG DOSING (CG) 61.68 mL/min; GLUCOSE RANDOM 60 mg/dL (75-99); POTASSIUM,K 4.4 mEq/L (3.5-5.0); PROTEIN TOTAL,TP 5.5 g/dL (6.4-8.2); SODIUM,NA 140 mEq/L (136-145)
[2025-02-22 07:54] LABS: C-REACTIVE PROTEIN < 0.50 mg/dL (<=0.50); ESTIMATED GFR 86 mL/min (>=60)
[2025-02-22 10:08] VITALS: PULSE 74
[2025-02-22] MEDS: buPROPion 150 MG Tab.SR PO ONE (10:35)
[2025-02-22] MEDS: Magnesium Sulfate 4 GM/100 mL 4 GM in Premix Bag 1 BAG IV ONE (10:43)
[2025-02-22] MEDS: Dextrose 5%-Lactated Ringers 1,000 ML IV SCH (10:48)
[2025-02-22 13:56] VITALS: BP 127/72
[2025-02-22] MEDS ORDERED: buPROPion 150 MG Tab.SR PO SCH (20:00)
== END 2025-02-22 15:30 ==
LOC: CC.ED 19:06 → UNDOADMOB 02-20 02:22 → CC.MS 02-20 02:22 → OBSVTOIN 02-20 11:14 → INTOOBSV 02-20 11:14 → OBSVTOIN 02-21 18:11
PROVIDERS: ADMIT Nurse Practitioner; ATTEND Physician Assistant Medical
DX: K83.8 Other specified diseases of biliary tract (principal); K56.609 Unspecified intestinal obstruction, unspecified as to partial versus complete obstruction; J90 Pleural effusion, not elsewhere classified; R18.8 Other ascites; Z88.6 Allergy status to analgesic agent; Z79.899 Other long term (current) drug therapy; Z87.19 Personal history of other diseases of the digestive system; Z90.89 Acquired absence of other organs; Z90.49 Acquired absence of other specified parts of digestive tract; Z98.890 Other specified postprocedural states; Z98.84 Bariatric surgery status
CPT/HCPCS: 36415; 74177; 80053; 81003; 82947; 83605; 83690; 83735; 85025; 86140; 96361; 96365; 96366; 96374; 96375; 96376; 99285-25; A9270-GY; G0378; J1171; J2270; J2405; J3475; J7030; J7120; J7121; Q9967